=== PATIENT | female | born 1970 | race Caucasian/White ===

== ENCOUNTER 2021-07-09 11:46 | Day surgery (SDC) | payer OTHER ==
[2021-07-09] MEDS ORDERED: ceFAZolin SODIUM 1 GM VIAL ONE ×3 (12:30→17:27)
[2021-07-09] MEDS ORDERED: GENTAMICIN SO4 80 MG/2 ML VIAL ONE ×2 (12:30→17:27)
[2021-07-09] MEDS ORDERED: VANCOMYCIN 1,000 MG VIAL (RESTRICTED TO ID ONLY) ONE (12:48)
[2021-07-09 12:52] VITALS: BMI 23.5
[2021-07-09] MEDS ORDERED: MIDAZOLAM HCL 2 MG/2 ML SINGLE DOSE VIAL ONE (15:37)
[2021-07-09] MEDS ORDERED: SUCCINYLCHOLINE CHLORIDE 200 MG/10 ML SYRINGE ONE (15:38)
[2021-07-09] MEDS ORDERED: DEXAMETHASONE SOD PHOSPHATE 4 MG/1 ML VIAL ONE ×3 (15:39→16:29)
[2021-07-09] MEDS ORDERED: ONDANSETRON 4 MG/2 ML VIAL ONE ×2 (15:39→16:29)
[2021-07-09] MEDS ORDERED: LIDOCAINE HCL/PF 2% SDV 5ML VIAL ONE (15:45)
[2021-07-09] MEDS ORDERED: PROPOFOL 20 ML ONE ×3 (15:45)
[2021-07-09] MEDS ORDERED: KETOROLAC TROMETHAMINE 30 MG/1 ML VIAL ONE (16:34)
[2021-07-09] MEDS ORDERED: BUPIVACAINE HCL 150 ML ONE (16:46)
[2021-07-09] MEDS ORDERED: MINERAL OIL/PETROLATUM,WHITE 3.5 GM TUBE ONE (18:26)
[2021-07-09] MEDS ORDERED: ONDANSETRON 4 MG/2 ML VIAL IVPB PRN (18:40)
[2021-07-09] MEDS ORDERED: oxyCODONE HCL 5 MG TABLET PO PRN ×3 (18:40→18:45)
[2021-07-09] MEDS ORDERED: LACTATED RINGERS SOLUTION 1,000 ML IV SCH (18:45)
[2021-07-09] MEDS ORDERED: ONDANSETRON 4 MG/2 ML VIAL IVPUSH PRN (18:45)
[2021-07-09 19:44] VITALS: BP 114/70; PULSE 100; TEMP 98.1
== END 2021-07-09 19:44 | disposition home or self-care (01) ==
LOC: FASU 11:46
PROVIDERS: ATTEND Plastic Surgery
PROC: 0HB5XZZ Excision of Chest Skin, External Approach (ICD-10-PCS; 2021-07-09)
PROC: 0HPU0NZ Removal of Tissue Expander from Left Breast, Open Approach (ICD-10-PCS; principal; 2021-07-09 16:34)
DX: T85.49XA Other mechanical complication of breast prosthesis and implant, initial encounter (principal); T81.89XA Other complications of procedures, not elsewhere classified, initial encounter; C50.012 Malignant neoplasm of nipple and areola, left female breast; Y82.8 Other medical devices associated with adverse incidents; Y92.9 Unspecified place or not applicable; Z90.12 Acquired absence of left breast and nipple; Y83.8 Other surgical procedures as the cause of abnormal reaction of the patient, or of later complication, without mention of misadventure at the time of the procedure
CPT/HCPCS: 88300-TC; 88304-TC; 94760; C9803; U0003; U0005

== ENCOUNTER 2023-10-20 06:24 | Day surgery (SDC) | payer OTHER ==
[2023-10-12 14:53] VITALS: BMI 24.3
[2023-10-20] MEDS ORDERED: GENTAMICIN SO4 80 MG/2 ML VIAL ONE (07:40)
[2023-10-20] MEDS ORDERED: ceFAZolin SODIUM 1 GM VIAL ONE ×2 (07:40→12:58)
[2023-10-20] MEDS ORDERED: BACITRACIN ZINC 15 GM TUBE TOPICAL OINTMENT ONE (07:40)
[2023-10-20] MEDS ORDERED: ROCURONIUM BROMIDE 50 MG/5 ML SYRINGE ONE (08:30)
[2023-10-20] MEDS ORDERED: PROPOFOL 20 ML ONE (08:30)
[2023-10-20] MEDS ORDERED: SUCCINYLCHOLINE CHLORIDE 200 MG/10 ML SYRINGE ONE (08:33)
[2023-10-20] MEDS ORDERED: MIDAZOLAM HCL 2 MG/2 ML SINGLE DOSE VIAL ONE (10:14)
[2023-10-20] MEDS ORDERED: HEPARIN NA (PORCINE) 5,000 UNITS/ML 1ML VIAL ONE (10:39)
[2023-10-20] MEDS ORDERED: PHENYLEPHRINE HCL 10 MG/1 ML SINGLE DOSE VIAL ONE (12:58)
[2023-10-20] MEDS ORDERED: DEXAMETHASONE SOD PHOSPHATE 4 MG/1 ML VIAL ONE (12:58)
[2023-10-20] MEDS ORDERED: ATROPINE SO4 0.4 MG/1 ML VIAL ONE (12:58)
[2023-10-20] MEDS ORDERED: ONDANSETRON 4 MG/2 ML VIAL ONE (12:58)
[2023-10-20] MEDS ORDERED: LIDOCAINE HCL/PF 2% SDV 5ML VIAL ONE (12:58)
[2023-10-20] MEDS ORDERED: HYDROmorphone HCL/PF 1 MG/ML VIAL ONE (13:14)
[2023-10-20] MEDS ORDERED: oxyCODONE HCL 5 MG TABLET PO PRN ×3 (13:42→13:48)
[2023-10-20] MEDS ORDERED: ONDANSETRON 4 MG/2 ML VIAL IVPB PRN (13:42)
[2023-10-20] MEDS ORDERED: LACTATED RINGERS SOLUTION 1,000 ML IV SCH ×2 (13:45→14:00)
[2023-10-20] MEDS ORDERED: PROMETHAZINE HCL 25 MG/1 ML VIAL IVPB PRN (13:48)
[2023-10-20] MEDS ORDERED: oxyCODONE HCL 5 MG TABLET ONE (14:51)
[2023-10-20 16:11] VITALS: BP 108/74; PULSE 84; RESP 19; TEMP 97
== END 2023-10-20 15:32 | disposition home or self-care (01) ==
LOC: FASU 06:24
PROVIDERS: ATTEND Plastic Surgery
PROC: 0HPT0NZ Removal of Tissue Expander from Right Breast, Open Approach (ICD-10-PCS; principal; 2023-10-20 11:25)
PROC: 0HRT0JZ Replacement of Right Breast with Synthetic Substitute, Open Approach (ICD-10-PCS; 2023-10-20 11:25)
PROC: 0HRU07Z Replacement of Left Breast with Autologous Tissue Substitute, Open Approach (ICD-10-PCS; 2023-10-20 11:25)
DX: C50.112 Malignant neoplasm of central portion of left female breast (principal); Z90.13 Acquired absence of bilateral breasts and nipples; N65.1 Disproportion of reconstructed breast
CPT/HCPCS: 94760; J1644; L8600